=== PATIENT | female | born 1975 | race Caucasian/White ===

== ENCOUNTER 2016-09-13 08:54 | Emergency (ER) | payer MEDICAID, OTHER ==
[~2016-09-13] VITALS: Wt 100.0 kg
[~2016-09-13 08:54] MED LIST: CYCL-319 PO; HYDR-762 PO; IBUP-1542 PO
[2016-09-13] MEDS ORDERED: ONDANSETRON (ODT) 4 MG TAB ODT STA (09:16)
[2016-09-13] MEDS ORDERED: ONDA4TAB14 PO (09:19)
[2016-09-13] MEDS ORDERED: CIPR500T4 PO (09:19)
--- NOTE | 2016-09-13 10:16 | ERD ---
ER Documentation Chief Complaint Date/Time DATE: 09/13/16 TIME: 10:15 Chief Complaint vomiting and diarrhea for the past 2 days. recent travel to [facility] HPI This is a 41-year-old female presenting to the emergency department complaining of vomiting diarrhea for the past 2 days status post coming back from [facility]. Patient denies any severe abdominal pain, denies any urine urinary symptoms. Patient has not taken any medication for this. ROS All systems reviewed and are negative except as per history of present illness. Medications Home Meds Active Scripts Ondansetron (Ondansetron Odt) 4 Mg Tab.rapdis, 4 MG PO Q6H Y for NAUSEA AND/OR VOMITING, #10 TAB Prov:DOC MARCOS PA-C 09/13/16 Ciprofloxacin Hcl* (Ciprofloxacin Hcl*) 500 Mg Tablet, 500 MG PO BID for 3 Days , TAB Prov:DOC MARCOS PA-C 09/13/16 Hydrocodone Bit-Acetaminophen* ([place]*) 10-325 Mg Tablet, 1 TAB PO Q6 Y for PAIN , #15 TAB Prov:BARBARA TA PA-C 10/17/15 Ibuprofen* (Motrin*) 600 Mg Tab, 600 MG PO Q6H Y for PAIN AND OR ELEVATED TEMP, #30 TAB Prov:BARBARA TA PA-C 10/17/15 Cyclobenzaprine Hcl* (Cyclobenzaprine Hcl*) 10 Mg Tablet, 10 MG PO QPM, #15 TAB Prov:BARBARA TA PA-C 10/17/15 Allergies Allergies: Coded Allergies: No Known Allergy (Unverified Allergy, Unknown, 05/16/06) PMhx/Soc Medical and Surgical Hx: pt denies Medical Hx, pt denies Surgical Hx Physical Exam Vitals Vital Signs Date Time Temp Pulse Resp B/P Pulse Ox O2 Delivery O2 Flow Rate FiO2 09/13/16 09:00 99.2 85 21 141/73 98 Physical Exam GENERAL: well-developed/well-nourished, in no apparent distress, non-toxic appearing HENT: NC/AT, moist mucous membranes EYES: Conjunctiva normal NECK: Supple, no lymphadenopathy PULM: CTA bilaterally, no rales, rhonchi, or wheezing heard CV: Normal S1S2, RRR, good capillary refill GI: Soft, non-distended, tender to palpation Normal bowel sounds, no masses or organomegaly felt on exam No gross peritonitis, no bruits Negative Rovsing, negative Rodriguez, negative McBurney's point, Negative CVAT BACK: No masses EXT: No clubbing, cyanosis, or edema NEURO: Alert and Orientated SKIN: Intact, normal turgor PSYCH: Normal mood and mentation Results 24 hrs Current Medications Medications (Trade) Dose Ordered Sig/Bernadette Route PRN Reason Start Time Stop Time Status Last Admin Dose Admin Ondansetron HCl (Zofran Odt) 4 mg ONCE STAT ODT 09/13/16 09:16 09/13/16 09:18 DC 09/13/16 09:32 Procedures/MDM 41-year-old female patient with vomiting and diarrhea, due to gastroenteritis, likely due to traveling to [facility]. Low suspicion for pseudomembranous colitis , diverticulitis, appendicitis, cholecystitis, pancreatitis, or other abdominal emergencies or acute cardiopulmonary conditions due to physical examination and diagnostic testing. Patient was given Zofran and passed PO challenge. Patient is hemodynamically stable for discharge. Prescription Zofran and cipro was given. Discussed to increase fluids. Discussed to return to the ED if not improving as expected or for any worsening conditions. Patient understood and agreed with this plan. Departure Diagnosis: Primary Impression: Gastroenteritis Condition: Stable Patient Instructions: Diet, Vomiting Or Diarrhea [6Yr-Adult], Food Poisoning Or Gastroenteritis (6Y-Adult) Referrals: NO PRIMARY,CARE PHYSICIAN (PCP) Additional Instructions: Visite a rod osito hicks para un EXAMEN.Regrese a estas instalaciones si no se mejora leonidas esperbamos o leonidas le dijimos. [place] toda la medicina pricila y leonidas se le indic. Regrese a estas instalaciones si no se mejora leonidas esperbamos o leonidas le dijimos. DOC MARCOS PA-C Sep 13, 2016 10:16
== END 2016-09-13 10:00 | disposition home or self-care (01) ==
LOC: FTE 08:54
DX: K52.9 Noninfective gastroenteritis and colitis, unspecified (principal)
CPT/HCPCS: Z7502; Z7610; 99284

== ENCOUNTER 2016-12-14 21:12 | Emergency (ER) | payer SELFPAY ==
[~2016-12-14] VITALS: Ht 167.6 cm; Wt 107.5 kg
[~2016-12-14 21:12] MED LIST changes: +CIPR500T4 PO; +ONDA4TAB14 PO
[2016-12-14 21:15] VITALS: Ht 167.6 cm; Wt 107.5 kg
[2016-12-15] MEDS ORDERED: ACETAMINOPHEN 500 MG TAB PO STA (00:07)
[2016-12-15 01:14] LABS: ADD SCAN DIFF NO; BASOPHILS % 0.2 % (0.0-2.0); EOSINOPHILS # 0.1 10^3/ul (0.0-0.5); EOSINOPHILS % 0.4 % (0.0-7.0); HEMATOCRIT 37.5 % (37.0-47.0); HEMOGLOBIN 12.7 g/dl (12.0-16.0); LYMPHOCYTES # 1.6 10^3/ul (0.8-2.9); LYMPHOCYTES % 9.4 % (15.0-51.0); MEAN CORPUSCULAR HEMOGLOBIN 29.5 pg (29.0-33.0); MEAN CORPUSCULAR HGB CONC 33.9 g/dl (32.0-37.0); MEAN CORPUSCULAR VOLUME 87.2 fl (82.0-101.0); MEAN PLATELET VOLUME 11.5 fl (7.4-10.4); MONOCYTE # 0.7 10^3/ul (0.3-0.9); MONOCYTES % 4.3 % (0.0-11.0); NEUTROPHIL # 14.1 10^3/ul (1.6-7.5); NEUTROPHILS % 85.2 % (39.0-77.0); PLATELET COUNT 282 10^3/UL (140-415); RED CELL DISTRIBUTION WIDTH 12.4 % (11.5-14.5); WHITE BLOOD COUNT 16.5 10^3/ul (4.8-10.8)
--- NOTE | 2016-12-15 01:31 | RADRPT ---
PROCEDURE: XR Chest. CLINICAL INDICATION: Chest pain. TECHNIQUE: Single frontal view of the chest. COMPARISON: None. FINDINGS: Heart size is at upper limits of normal. Right lung patchy air space disease, greater at the right lung base. Findings may represent right lung pneumonia. The left lung is clear. No signs of pleural fluid or pneumothorax are seen. The osseous structures and soft tissues are unremarkable. IMPRESSION: Right lung patchy air space disease, greater at the right lung base. RPTAT: [facility] Physician Delon Date Time Electronically viewed and signed by Physician Delon on 12/15/2016 01:30 RS/
[2016-12-15] MEDS: CEFTRIAXONE 1 GM/50 ML (PMX) 50 ML IVPB STA ×2 (01:33→01:39)
[2016-12-15] MEDS: SOD CHLORIDE 0.9% 1,000 ML IV STA ×2 (01:33→01:39)
[2016-12-15] MEDS ORDERED: AZITHROMYCIN 500MG/NS (PMX) 250 ML IV STA (01:33)
[2016-12-15 01:43] LABS: INR 0.83; PROTIME 11.4 Sec (12.2-14.2); PT RATIO 0.9
[2016-12-15 01:44] LABS: PARTIAL THROMBOPLASTIN TIME 24.1 Sec (25.0-35.0)
[2016-12-15 01:49] LABS: ANION GAP 15 (8-16); BLOOD UREA NITROGEN 11 mg/dl (7-20); CALCIUM 9.1 mg/dl (8.4-10.2); CARBON DIOXIDE 21 mmol/L (21-31); CHLORIDE 105 mmol/L (97-110); CREATININE 0.62 mg/dl (0.44-1.00); GLUCOSE 105 mg/dl (70-220); POTASSIUM 4.3 mmol/L (3.5-5.1); SODIUM 137 mmol/L (135-144)
[2016-12-15] MEDS ORDERED: LEVOFLOXACIN 750 MG TABLET PO ONE (02:00)
--- NOTE | 2016-12-15 02:19 | ERD ---
ER Documentation Chief Complaint Date/Time DATE: 12/15/16 TIME: 02:17 Chief Complaint FEVER WITH LEFT EAR AND THROAT PAIN, BODY ACHES, LEFT FACIAL SWELLING/PAIN HPI This is a 41-year-old female presents to the emergency room for evaluation of body aches, ear pain, throat pain, and a cough for the past 2 days. The patient states that her cough is consistent with green sputum. She denies any chest pain associated with this but does say she had mild shortness of breath with deep inspiration. 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 ROS All systems reviewed and are negative except as per history of present illness. Medications Home Meds Active Scripts Ondansetron (Ondansetron Odt) 4 Mg Tab.rapdis, 4 MG PO Q6H Y for NAUSEA AND/OR VOMITING, #10 TAB Prov:DOC MARCOS PA-C 09/13/16 Ciprofloxacin Hcl* (Ciprofloxacin Hcl*) 500 Mg Tablet, 500 MG PO BID for 3 Days , TAB Prov:DOC MARCOS PA-C 09/13/16 Hydrocodone Bit-Acetaminophen* ([place]*) 10-325 Mg Tablet, 1 TAB PO Q6 Y for PAIN , #15 TAB Prov:BARBARA TA PA-C 10/17/15 Ibuprofen* (Motrin*) 600 Mg Tab, 600 MG PO Q6H Y for PAIN AND OR ELEVATED TEMP, #30 TAB Prov:BARBARA TA PA-C 10/17/15 Cyclobenzaprine Hcl* (Cyclobenzaprine Hcl*) 10 Mg Tablet, 10 MG PO QPM, #15 TAB Prov:BARBARA TA PA-C 10/17/15 Allergies Allergies: Coded Allergies: No Known Allergy (Unverified Allergy, Unknown, 05/16/06) PMhx/Soc Medical and Surgical Hx: pt denies Medical Hx History of Surgery: Yes (C SECTION) Anesthesia Reaction: No Hx Neurological Disorder: No Hx Respiratory Disorders: No Hx Cardiac Disorders: No Hx Psychiatric Problems: No Hx Miscellaneous Medical Probl: No Hx Alcohol Use: No Hx Substance Use: No Hx Tobacco Use: No Smoking Status: Never smoker Physical Exam Vitals Vital Signs Date Time Temp Pulse Resp B/P Pulse Ox O2 Delivery O2 Flow Rate FiO2 12/15/16 01:55 100.5 97 16 124/80 99 Room Air 12/14/16 21:15 101.9 88 18 150/72 99 Physical Exam INITIAL VITAL SIGNS: Reviewed by me GENERAL: The patient is well developed and appropriate for usual state of health in no apparent distress HEENT: Pupils equal, round, and reactive to light. EOMI. There is no scleral icterus. NECK: C-spine is soft and supple, there is no meningismus. There is no cervical lymphadenopathy. LUNGS: Coarse breath sounds bilaterally. There are no rales, wheezes or rhonchi. HEART: Tachycardic, no murmurs, clicks, rubs or gallops. ABDOMEN: Soft, non-tender, non-distended. There are bowel sounds in all four quadrants. No rebound or guarding. EXTREMITIES: There is no peripheral cyanosis or edema. No focal swelling or erythema. NEUROLOGICAL: The patient moves all four extremities with 5/5 strength. Cranial nerves II - XII are intact. Normal gait. Alert and oriented SKIN: There is no apparent rash or petechiae. HEME/LYMPHATIC: There is no evidence of excessive bruising or lymphedema. PSYCHIATRIC: The patient does not appear anxious or depressed. Result Diagram: 12/15/16 0039 12/15/16 0039 Results 24 hrs Laboratory Tests Test 12/15/16 00:39 White Blood Count 16.510^3/ul Red Blood Count 4.3010^6/ul Hemoglobin 12.7g/dl Hematocrit 37.5% Mean Corpuscular Volume 87.2fl Mean Corpuscular Hemoglobin 29.5pg Mean Corpuscular Hemoglobin Concent 33.9g/dl Red Cell Distribution Width 12.4% Platelet Count 21597^3/UL Mean Platelet Volume 11.5fl Neutrophils % 85.2% Lymphocytes % 9.4% Monocytes % 4.3% Eosinophils % 0.4% Basophils % 0.2% Nucleated Red Blood Cells % 0.0/100WBC Neutrophils # 14.110^3/ul Lymphocytes # 1.610^3/ul Monocytes # 0.710^3/ul Eosinophils # 0.110^3/ul Basophils # 0.010^3/ul Nucleated Red Blood Cells # 0.010^3/ul Prothrombin Time 11.4Sec Prothrombin Time Ratio 0.9 INR International Normalized Ratio 0.83 Activated Partial Thromboplast Time 24.1Sec Sodium Level 137mmol/L Potassium Level 4.3mmol/L Chloride Level 105mmol/L Carbon Dioxide Level 21mmol/L Anion Gap 15 Blood Urea Nitrogen 11mg/dl Creatinine 0.62mg/dl Glucose Level 105mg/dl Calcium Level 9.1mg/dl Troponin I Pending Current Medications Medications (Trade) Dose Ordered Sig/Bernadette Route PRN Reason Start Time Stop Time Status Last Admin Dose Admin Acetaminophen 1000 mg 1,000 mg ONCE STAT PO 12/15/16 00:07 12/15/16 00:13 DC 12/15/16 00:59 Azithromycin 250 ml @ 250 mls/hr ONCE STAT IV 12/15/16 01:33 12/15/16 02:32 Ceftriaxone Sodium 50 ml @ 100 mls/hr ONCE STAT IVPB 12/15/16 01:33 12/15/16 02:02 DC Sodium Chloride (NS) 1,000 ml @ 1,000 mls/hr Q1H STAT IV 12/15/16 01:33 12/15/16 02:32 Levofloxacin (Levaquin) 750 mg ONCE ONCE PO 12/15/16 02:00 12/15/16 02:01 DC Procedures/MDM EKG: Rate/Rhythm: Sinus tachycardia QRS, ST, T-waves: [No changes consistent w/ acute ischemia] Impression: [No evidence of ischemia or arrhythmia] Chest X-ray 1V Interpreted by me: Soft Tissue: No acute abnormalities Bones: No acute abnormalities Mediastinum/Cardiac Silhouette/Lungs: Right upper lobe pneumonia This 41-year-old female presents to the emergency room for evaluation of a fever , cough, body aches. When I evaluated this patient she was febrile tachycardic. I did obtain lab work and an x-ray which does reveal right upper lobe pneumonia with mild leukocytosis. This patient does not have any hypoxia, she is tolerating p.o. Garrett. She is in no acute distress at this time. The patient was given Levaquin in the emergency room and will be discharged home with a prescription for Levaquin and instructions to return to the emergency room if she were to develop any worsening shortness of breath. The patient did verbalize understanding and is okay with her plan of care at this time. Departure Diagnosis: Primary Impression: Right upper lobe pneumonia Additional Impression: Fever Condition: Stable CÉSAR COMBS DO Dec 15, 2016 02:19
[2016-12-15] MEDS ORDERED: LEVO750T25 PO (02:20)
[2016-12-15 02:29] LABS: TROPONIN-I < 0.012 ng/ml (0.00-0.12)
[2016-12-15 02:37] VITALS: BP 122/69; PULSE 96; RESP 19; TEMP 99
[2016-12-16] MEDS ORDERED: AZIT250T94 PO (11:51)
== END 2016-12-15 02:39 | disposition home or self-care (01) ==
LOC: E/R 21:12
DX: J18.1 Lobar pneumonia, unspecified organism (principal); R07.9 Chest pain, unspecified
CPT/HCPCS: 36415; 71010; 80048; 84484; 85025; 85610; 85730; 93005; 99285; J0696; J7030; J0456

== ENCOUNTER 2016-12-16 10:08 | Emergency (ER) | payer MEDICAID ==
[~2016-12-16] VITALS: Ht 167.6 cm; Wt 105.5 kg
[~2016-12-16 10:08] MED LIST changes: +LEVO750T25 PO
[2016-12-16 10:22] VITALS: Ht 167.6 cm; Wt 105.5 kg
[2016-12-16] MEDS ORDERED: AZIT250T94 PO (11:51)
[2016-12-16 12:00] VITALS: BP 130/74; PULSE 67; RESP 18; TEMP 98.2
--- NOTE | 2016-12-16 14:38 | ERA ---
ER Documentation Chief Complaint Date/Time DATE: 12/16/16 TIME: 14:30 Chief Complaint SORE THROAT, SEEN HERE LAST WEEK, DX WITH PNA. NOT TAKING ABX HPI This is a 41-year-old female who is presenting with a chief complaint of pneumonia. Patient was diagnosed with pneumonia by Dr. Bridgette norman in the ED 2 days ago. Patient states that her to the pharmacy to fill the medication but her insurance did not cover it. This coming to get reevaluated, another set of antibiotics and to sign up for [facility] emergency on discharge. Patient also states that she has had a sore throat. The patient denies difficulty breathing , dysphagia, change in voice, drooling, fatigue, oral swelling, ear pain or meningismus. Patients vaccination status is up to date. I have reviewed the previous documentation and is consistent with her given history. ROS All systems reviewed and are negative except as per history of present illness. Medications Home Meds Active Scripts Azithromycin* (Zithromax*) 250 Mg Tablet, 250 MG PO .ZPACK DIRECTED for 5 Days, #7 TAB TAKE 500 MG (2 TABS) THE FIRST DAY THEN 250 MG (1 TAB) DAYS 2-5 Prov:CRISTINA GARCIA PA-C 12/16/16 Levofloxacin* (Levaquin*) 750 Mg Tablet, 750 MG PO DAILY for 7 Days, TAB Prov:CÉSAR COMBS DO 12/15/16 Ondansetron (Ondansetron Odt) 4 Mg Tab.rapdis, 4 MG PO Q6H Y for NAUSEA AND/OR VOMITING, #10 TAB Prov:DOC MARCOS PA-C 09/13/16 Ciprofloxacin Hcl* (Ciprofloxacin Hcl*) 500 Mg Tablet, 500 MG PO BID for 3 Days , TAB Prov:DOC MARCOS PA-C 09/13/16 Hydrocodone Bit-Acetaminophen* ([place]*) 10-325 Mg Tablet, 1 TAB PO Q6 Y for PAIN , #15 TAB Prov:BARBARA TA PA-C 10/17/15 Ibuprofen* (Motrin*) 600 Mg Tab, 600 MG PO Q6H Y for PAIN AND OR ELEVATED TEMP, #30 TAB Prov:BARBARA TA PA-C 10/17/15 Cyclobenzaprine Hcl* (Cyclobenzaprine Hcl*) 10 Mg Tablet, 10 MG PO QPM, #15 TAB Prov:BARBARA TA TYREE 10/17/15 Allergies Allergies: Coded Allergies: No Known Allergy (Unverified Allergy, Unknown, 05/16/06) PMhx/Soc History of Surgery: Yes (C SECTION) Anesthesia Reaction: No Hx Neurological Disorder: No Hx Respiratory Disorders: No Hx Cardiac Disorders: No Hx Psychiatric Problems: No Hx Miscellaneous Medical Probl: Yes () Hx Alcohol Use: No Hx Substance Use: No Hx Tobacco Use: No Smoking Status: Never smoker Physical Exam Vitals Vital Signs Date Time Temp Pulse Resp B/P Pulse Ox O2 Delivery O2 Flow Rate FiO2 12/16/16 12:00 98.2 67 18 130/74 97 Room Air 12/16/16 10:22 98.8 78 18 133/74 97 Physical Exam Const: Well-appearing 41-year-old female with a mask on during initial presentation in no acute distress. Head: Atraumatic Eyes: Normal Conjunctiva ENT: Erythematous oropharynx with exudates seen bilaterally. normal External Ears, Nose and Mouth. Neck: Full range of motion..~ No meningismus. Resp: Mild crackles in the left lower lobe. No dullness to percussion. Clear to auscultation bilaterally Cardio: Regular rate and rhythm, no murmurs Abd: Soft, non tender, non distended. Normal bowel sounds Skin: No petechiae or rashes Back: No midline or flank tenderness Ext: No cyanosis, or edema Neur: Awake and alert Psych: Normal Mood and Affect Procedures/MDM This is a 41-year-old female presenting with a chief complaint of not been able to fill medications after being diagnosed with pneumonia 2 days ago by . The medication prescribed was Levaquin. I will go ahead and prescribed azithromycin as the signs, symptoms and physical examination is still consistent with pneumonia. I have reviewed the previous documentations and agree with the previous assessment and plan. Patient's vitals are stable and her current condition is appropriate for discharge. Patient will be discharged with Z-Calvin. Have instructed the patient to continue taking all other medications as directed. Will be given patient discharge instructions with return precautions. Departure Diagnosis: Primary Impression: Pneumonia Qualified Code: J18.1 - Pneumonia of left lower lobe due to infectious organism Condition: Stable Patient Instructions: Pneumonia (Adult) Additional Instructions: Follow up with your PCP within the next 1-3 days for a more thorough evaluation. Return the the emergency department immediately if symptoms worsen or change. If you have any questions regarding medications, ask your pharmacist or us before you leave. X-ray was read by the radiologist and given an impression of left lower lobe pneumonia. If any adverse reactions occur while taking your medications, discontinue the treatment and return to the emergency department immediately. Take your medications as directed, and complete the entire course of treatment. CRISTINA GARCIA PA-C Dec 16, 2016 14:38
== END 2016-12-16 12:00 | disposition home or self-care (01) ==
LOC: FTE 10:08
DX: J18.1 Lobar pneumonia, unspecified organism (principal)
CPT/HCPCS: 99283

== ENCOUNTER 2017-10-02 20:25 | Emergency (ER) | END 2017-10-02 22:24 | disposition home or self-care (01) ==